=== PATIENT | male | born 2005 | race Caucasian/White ===

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

== ENCOUNTER → 2023-12-07 15:34 | Outpatient (BNVA) | payer MEDICAID, SELFPAY | PROVIDERS: Visit Provider Nurse Practitioner Family | DX: R45.86 Emotional lability (principal); F32.9 Major depressive disorder, single episode, unspecified; N50.812 Left testicular pain; N50.811 Right testicular pain | CPT/HCPCS: 80053; 84402; 84403; 84443; 85025 ==

== ENCOUNTER 2023-12-14 14:32 | Outpatient (CLI) | payer MEDICAID, SELFPAY ==
--- NOTE | 2023-12-14 14:45 | US_ITS ---
WS: [id number] TESTICULAR ULTRASOUND HISTORY: Testicular pain COMPARISON: None available. TECHNIQUE: Real-time and color Doppler imaging or utilized to perform a testicular ultrasound. Right testicle: 4.8 cm x 2.5 cm x 2.6 cm. Normal size and echogenicity. No mass or torsion. Normal color Doppler is present throughout. Systolic and diastolic velocities are both present. No significant hydrocele. Right epididymis: Normal epididymis with no increased vascularity. Left testicle: 4.2 cm x 3.1 cm x 2.4 cm. Normal size and echogenicity. No mass or torsion. Normal color Doppler is present throughout. Systolic and diastolic velocities are both present. No significant hydrocele. Left epididymis: Normal epididymis with no increased vascularity. IMPRESSION: NORMAL TESTICULAR ULTRASOUND.
== END 2023-12-14 14:33 | disposition home or self-care (01) ==
LOC: RAD 14:33
PROVIDERS: PCP Nurse Practitioner Family; Visit Provider Nurse Practitioner Family
DX: N50.812 Left testicular pain (principal); N50.811 Right testicular pain
CPT/HCPCS: 76870

== ENCOUNTER 2024-01-08 17:44 | Emergency (ER) | payer OTHER, SELFPAY ==
[2024-01-08 17:48] VITALS: BP 140/81; PULSE 80; RESP 17; TEMP 36.6; O2SAT 97; BMI 34.7
--- NOTE | 2024-01-08 18:01 | ED_ITS ---
HPI - Extremity Problem General: Chief complaint: Extremity Injury, Lower Stated complaint: Left Ankle pain Time Seen by Provider: 01/08/24 17:55 Source: patient Mode of arrival: ambulatory Limitations: no limitations History of Present Illness: 18yo male presents with significant othe r for evaluation of left ankle pain and swelling after rolling his ankle this morning while at work. Patient reports he felt a pop when he rolled it. States he was wearing his work boots at the time. Reports that it did go numb for approximately 2 minutes. States he did take an 800 mg pain reliever around 1100 but is not certain what it was. States that he did not have any improvement in his symptoms. Patient denies previous injury to the ankle, fall, any other concern at this time. Associated symptoms: Deny fever(s) Review of Systems Const: Denies: fever(s) Musc: Reports: joint pain (left ankle) and limited range of motion (left ankle, pain with movement) PFSH ED PFSH: Medical History Allergic rhinitis due to allergen Constipation No pertinent family history Surgical History No pertinent past surgical history Family History Other CAD (coronary artery disease) Denies family history of Diabetes Clotting disorder Dementia Hyperlipidemia Psychiatric illness Chronic kidney disease (CKD) Suicide Anesthesia complication Bleeding disorder Family history of premature coronary artery disease Lung disease Cancer Hypertension Stroke Social History Smoking and tobacco/nicotine status: never used tobacco/nicotine Alcohol intake: never Substance/Drug Use: never Adopted: No Lives independently: Yes Housing: House Marital status: Single Number of children: 0 Highest education level completed: High School Graduate service: No Current occupational status: unemployed Physical Exam Const: COMMON NORMALS: no acute distress GENERAL APPEARANCE: cooperative ORIENTATION/CONSCIOUSNESS: Yes awake OTHER: Patient is sitting upright on stretcher no acute distress. He is able to give history with no difficulty. He is interactive with exam appropriately. Family is at bedside HENMT: COMMON NORMALS: normocephalic HEAD & SCALP: normocephalic Extremity: LEFT LOWER EXTREMITY: Yes ankle joint Left ankle: Yes palpation (tenderness over the ATFL) and Yes ROM (increased pain with dorsi/plantar flexion and lateral movement) OTHER: No proximal fibula tenderness. No fifth metatarsal tenderness to palpation. +movement toes with no difficulty. Pedal pulse 2+, capillary refill < 3 sec Psych: ATTITUDE: Yes calm Skin: COMMON NORMALS: no rashes or lesions noted GENERAL SKIN EXAM: no rashes or lesions noted Course Vital Signs: Vital signs: Vital Signs Temperature 97.9 F 01/08/24 17:48 Pulse Rate 80 01/08/24 17:48 Respiratory Rate 17 01/08/24 17:48 Blood Pressure 140/81 01/08/24 17:48 Pulse Oximetry 97 01/08/24 17:48 Oxygen Delivery Me thod Room Air 01/08/24 17:48 MDM - Extremity (Nontraumatic) Medical Decision Making 18yo male here with friend for evaluation of left ankle pain and swelling after rolling his ankle this morning while at work. Patient reports that he did feel a pop when it occurred. States he has been able to walk, but he does have increased pain. He did attempt a pain medication that was 800 mg, but does not know exactly what it was. States that he had no improvement. Patient denies fall or any other injury or concern at this time. Patient is nontoxic in appearance. Vital signs are stable. Differential diagnosis include but is not limited to: Ankle sprain, ankle fracture, foot fracture, Maisonneuve fracture, contusion No fracture or acute bony abnormality noted on the x-ray. Discussed these findings with patient and family. At time of discussion of findings, someone from patient's job was with the patient and they decided to make this Workmen's Comp. The facility that typically does the urine drug screens has already closed and will not be open this weekend. Patient and coworker state understanding that a UDS performed in the emergency department may or may not be acceptable. They do wish to proceed. For the ankle, recommend rest, ice, elevation. Advised Tylenol/ibuprofen as needed for pain and comfort. Recommend increasing weightbearing and activity as tolerated. Advised to follow-up with primary care within a week for recheck, sooner if needed. Recommend return to emergency department if any rapid worsening symptoms, further injury, and as needed. Patient states understanding has no further questions or concerns at this time. Medical Records I reviewed the patient's medical records. Lab Data Radiology Impressions Ankle X-Ray 01/08/24 18:01 IMPRESSION: No acute findings. All radiology interpretation(s) finalized by discharge Discharge Plan Discharge Patient Disposition: Home Clinical Impression: Left ankle sprain Condition: Stable Prescriptions: No Action fluoxetine [Prozac] 10 mg capsule 10 mg PO DAILY 30 Days Qty: 30 0RF fluticasone propionate 50 mcg/actuation spray,suspension See Rx Instructions .ROUTE .COMPLEX Qty: 16 2RF Dose Instruction: instill 2 SPRAY IN EACH NOSTRIL DAILY Rx Instructions: instill 2 SPRAY IN EACH NOSTRIL DAILY Discharge Orders: Discharge ED (Routine); Ordered 01/08/24 Ordered By: Reed Giron Referrals: Kim Braga NP [Primary Care Provider] - Discharge Diet: Usual diet Discharge Activity: Increase activity as tolerated Patient Instructions: Ankle Sprain (ED) Activity Restrictions/Additional Instructions: No fracture or acute bony abnormality noted on the x-ray today. This is likely a sprain. Rest, ice, and elevation for the next couple of days will help with the pain and swelling. Apply ice for 10 to 15 minutes at a time throughout the day Use Tylenol/ibuprofen as needed for pain and comfort. Work on range of motion exercises over the next 2 days. Act as if your toe is a pen and draw your ABCs to provide full range of motion of the foot and ankle Increase your weightbearing and activity as tolerated over the next couple of days. Use the provided elastic wrap to help support the ankle Follow-up with your doctor for recheck of the ankle within 1 week, sooner if needed Return to the emergency department if any further injury, rapid worsening symptoms, and as needed Coding Level of Care Code ED Early Education Teacher for Miguel Pichardo
--- NOTE | 2024-01-08 18:01 | XRR_ITS ---
PROCEDURE INFORMATION: Exam: XR Left Ankle Exam date and time: 01/08/2024 6:13 PM Age: 18 years old Clinical indication: Injury or trauma; Other: Rolled ankle; Sprain or strain; Left; Additional info: Pain, rolled ankle TECHNIQUE: Imaging protocol: Radiologic exam of the left ankle. Views: 3 or more views. COMPARISON: No relevant prior studies available. FINDINGS: Bones/joints: Normal. Soft tissues: Normal. XR/XR ankle LT min 3V* [id number] IMPRESSION: No acute findings.
[2024-01-08 19:38] VITALS: PULSE 79; RESP 16; O2SAT 97
[2024-01-08 19:48] LABS: Amphetamines Screen Urine Negative (Negative); Barbiturates Screen Urine Negative (Negative); Benzodiazepines Screen Urine Negative (Negative); Cocaine Screen Urine Negative (Negative); Opiate Screen Urine Negative (Negative); PCP Screen Urine Negative (Negative); THC Screen Urine Negative (Negative)
== END 2024-01-08 19:39 | disposition home or self-care (01) ==
PROVIDERS: Emergency Provider Nurse Practitioner; PCP Nurse Practitioner Family
DX: S93.402A Sprain of unspecified ligament of left ankle, initial encounter (principal); X50.1XXA Overexertion from prolonged static or awkward postures, initial encounter; Y99.0 Civilian activity done for income or pay
CPT/HCPCS: 73610; 80306; 99283

== ENCOUNTER 2024-02-20 16:23 | Emergency (ER) | payer MEDICAID, SELFPAY ==
[2024-02-20 16:29] VITALS: BP 140/83; PULSE 103; RESP 17; TEMP 36.8; O2SAT 96; BMI 35.3
--- NOTE | 2024-02-20 16:55 | CTR_ITS ---
PROCEDURE INFORMATION: Exam: CT Orbits With Contrast Exam date and time: 02/20/2024 5:37 PM Age: 19 years old Clinical indication: Mass, lump, or swelling; Eye pain; Right; Patient HX: C/O pain with swelling to RT orbit; Additional info: Pain w/ eom TECHNIQUE: Imaging protocol: Computed tomography of the orbits with contrast. Radiation optimization: All CT scans at this facility use at least one of these dose optimization techniques: automated exposure control; mA and/or kV adjustment per patient size (includes targeted exams where dose is matched to clinical indication); or iterative reconstruction. Contrast material: OMNI 350; Contrast volume: 100 ml; Contrast route: INTRAVENOUS (IV); COMPARISON: No relevant prior studies available. RADIATION DOSE METRICS: Total DLP (mGy-cm): 388.68 FINDINGS: Paranasal sinuses: Trace mucosal thickening of the bilateral maxillary sinuses. Mastoid air cells: Mastoid air cells are clear. Orbital cavities: Orbits and globes are normal in appearance. Bones/joints: No acute osseous fractures. Soft tissues: Visualized superficial soft tissues are within normal limits. CT/CT orbit BI w con [id number] IMPRESSION: No acute findings.
--- NOTE | 2024-02-20 17:05 | W.ED.EYEPROB ---
Documented by User: SHARA Molina 02/20/24 18:43 HPI - Eye Problem General: Chief complaint: Eye Problems Stated complaint: swollen rt eye Time Seen by Provider: 02/20/24 16:48 Source: patient Mode of arrival: ambulatory Limitations: no limitations History of Present Illness: Patient is a 19-year-old male presenting to the emergency department complaining of right eye swelling onset 3 hours ago. He also is noting mild pain with extraocular movements. Denying any visual changes at this time. No fevers noted or other systemic signs of illness. He denies any foreign body sensation or trauma to the right eye. He has never had this issue before. He does note that the swelling and pain seems to be getting worse. Has not taken anything for symptoms. He does note a history of allergies and wonders if this is potentially caused from these. No overlying skin changes reported to the right eye. MD chief complaint: eye pain Onset (ago): hour(s) Onset description: sudden Duration: progressively worsening Location: right eye Associated symptoms: Denies fever(s), headache(s), nausea, neck pain or vomiting Review of Systems General: Reports: 10 or more systems reviewed and unremarkable except in HPI and below Const: Denies: fever(s), chills or fatigue Eyes: Reports: eye discomfort and other (Right periorbital swelling); Denies: change in vision or blurry vision ENMT: Denies: throat pain, ear or mastoid pain or nasal discharge Card: Denies: chest pain, palpitations, swelling of feet/ankles or lightheadedness Resp: Denies: dyspnea, productive cough or wheezing GI: Denies: abdominal pain, nausea, vomiting, diarrhea or constipation : Denies: flank pain, difficulty urinating, dysuria or urinary frequency Musc: Denies: neck pain, back pain or joint pain Skin/Breast: Denies: rash Neuro: Denies: headache(s), numbness in extremities or weakness in extremities PFSH ED PFSH: Medical History Allergic rhinitis due to allergen No pertinent family history Constipation Surgical History No pertinent past surgical history Family History Other CAD (coronary artery disease) Denies family history of Diabetes Clotting disorder Dementia Hyperlipidemia Psychiatric illness Chronic kidney disease (CKD) Suicide Anesthesia complication Bleeding disorder Family history of premature coronary artery disease Lung disease Cancer Hypertension Stroke Social History Smoking and tobacco/nicotine status: never used tobacco/nicotine Alcohol intake: never Substance/Drug Use: never Adopted: No Lives independently: Yes Housing: House Marital status: Single Number of children: 0 Highest education level completed: High School Graduate service: No Current occupational status: unemployed Physical Exam Const: COMMON NORMALS: no acute distress, patient oriented x3 and no limitations GENERAL APPEARANCE: cooperative, comfortable and well developed ORIENTATION/CONSCIOUSNESS: Yes awake, Yes oriented to person, Yes oriented to place and Yes oriented to time HENMT: COMMON NORMALS: normocephalic, atraumatic, hearing grossly normal bilaterally and Normal external nose present HEAD & SCALP: normocephalic and atraumatic FACE & SINUS: normal facial exam NOSE: Normal external nose present Eye: COMMON NORMALS: Equal, round and reactive pupils present and EOMs intact bilaterally VISUAL ACUITY: Yes acuity normal PERIORBITAL: periorbital findings normal PUPIL: Yes Equal, round and reactive pupils present OTHER: There appears to be a raised injection the lateral aspect of patient's right eye, potential etiology includes pinguecula. Mild pain reported with medial deviation of the right eye. There is no obvious periorbital swelling or erythema on examination at this time. Neck/C-Spine: COMMON NORMALS: full ROM, supple and no JVD Resp: COMMON NORMALS: normal respiratory effort, No retractions, No use of accessory muscles and clear to auscultation bilaterally AUSCULTATION: clear to auscultation bilaterally Cardio: COMMON NORMALS: no JVD, regular rate, regular rhythm, No clicks present (Cardio), No murmurs present (Cardio) and No rub (Cardio) RATE: regular rate RHYTHM: regular rhythm Extremity: COMMON NORMALS: normal to inspection, full ROM and capillary refill normal Neuro: COMMON NORMALS: patient oriented x3, moves all extremities, no focal motor deficits and no sensory deficits noted SENSORIUM/ORIENTATION: Yes oriented to person, Yes oriented to place and Yes oriented to time Psych: COMMON NORMALS: mental status grossly normal and Normal thought process present THOUGHT PROCESS: Normal thought process present Skin: COMMON NORMALS: no rashes or lesions noted GENERAL SKIN EXAM: no rashes or lesions noted Course Vital Signs: Vital signs: Vital Signs Temperature 98.3 F 02/20/24 18:47 Pulse Rate 89 02/20/24 18:47 Respiratory Rate 16 02/20/24 18:47 Blood Pressure 136/86 02/20/24 18:47 Pulse Oximetry 98 02/20/24 18:47 Oxygen Delivery Me thod Room Air 02/20/24 16:29 [facility] - Eye Problem Medical Decision Making Patient presented for acute onset of right eye swelling and pain with extraocular movements. No other symptoms noted and patient's vitals were normal on arrival. Condition has remained stable throughout ED course. He did have some mild pain with extraocular movement with medial deviation of the right eye, and evidence of what potentially resembles a pinguecula, as patient notes he has history of allergies. Orbital CT did not demonstrate any signs of orbital cellulitis. I will treat the patient for an allergic type conjunctivitis, including tien-jzg-nmyvyie artificial tears and allergy medications. He states he will do this and he will return with any worsening of symptoms, specifically the extraocular movement pain or visual changes. He also requests referral to an banana loader due to longstanding history of allergies. All other questions and concerns are addressed. Lab Data Radiology Impressions Orbit CT 02/20/24 16:55 IMPRESSION: No acute findings. All radiology interpretation(s) finalized by discharge Discharge Plan Discharge Patient Disposition: Home Clinical Impression: Acute pain in right eye Condition: Stable Prescriptions: No Action fluoxetine [Prozac] 10 mg capsule 10 mg PO DAILY 30 Days Qty: 30 0RF fluticasone propionate 50 mcg/actuation spray,suspension See Rx Instructions .ROUTE .COMPLEX Qty: 16 2RF Dose Instruction: instill 2 SPRAY IN EACH NOSTRIL DAILY Rx Instructions: instill 2 SPRAY IN EACH NOSTRIL DAILY Discharge Orders: Discharge ED (Routine); Ordered 02/20/24 Ordered By: Orion Bledsoe Referrals: Kim Braga NP [Primary Care Provider] - Discharge Diet: Usual diet Discharge Activity: Increase activity as tolerated Patient Instructions: Eye Pain (ED) Activity Restrictions/Additional Instructions: [id number] artificial tears. Allergy medications as instructed. Monitor for any worsening of symptoms such as worsening pain with movement of your eyes or visual changes, and return for reevaluation. Otherwise, follow-up with primary care. Coding Level of Care Code ED Certified Surgical Assistant for Jayg Fwd Documented by User: Danie Rangel DO 02/21/24 06:58 HPI - Eye Problem General: Chief complaint: Eye Problems Stated complaint: swollen rt eye Time Seen by Provider: 02/20/24 16:48 PFSH ED PFSH: Medical History Allergic rhinitis due to allergen No pertinent family history Constipation Surgical History No pertinent past surgical history Family History Other CAD (coronary artery disease) Denies family history of Diabetes Clotting disorder Dementia Hyperlipidemia Psychiatric illness Chronic kidney disease (CKD) Suicide Anesthesia complication Bleeding disorder Family history of premature coronary artery disease Lung disease Cancer Hypertension Stroke Social History Smoking and tobacco/nicotine status: never used tobacco/nicotine Alcohol intake: never Substance/Drug Use: never Adopted: No Lives independently: Yes Housing: House Marital status: Single Number of children: 0 Highest education level completed: High School Graduate service: No Current occupational status: unemployed Course Vital Signs: Vital signs: Vital Signs Temperature 98.3 F 02/20/24 18:47 Pulse Rate 89 02/20/24 18:47 Respiratory Rate 16 02/20/24 18:47 Blood Pressure 136/86 02/20/24 18:47 Pulse Oximetry 98 02/20/24 18:47 Oxygen Delivery Me thod Room Air 02/20/24 16:29 [facility]DM - Eye Problem Medical Decision Making Patient presented for acute onset of right eye swelling and pain with extraocular movements. No other symptoms noted and patient's vitals were normal on arrival. Condition has remained stable throughout ED course. He did have some mild pain with extraocular movement with medial deviation of the right eye, and evidence of what potentially resembles a pinguecula, as patient notes he has history of allergies. Orbital CT did not demonstrate any signs of orbital cellulitis. I will treat the patient for an allergic type conjunctivitis, including jgeo-sya-ymyjooq artificial tears and allergy medications. He states he will do this and he will return with any worsening of symptoms, specifically the extraocular movement pain or visual changes. He also requests referral to an banana loader due to longstanding history of allergies. All other questions and concerns are addressed. Chart reviewed Lab Data Radiology Impressions Orbit CT 02/20/24 16:55 IMPRESSION: No acute findings. Discharge Plan Discharge Patient Disposition: Home Clinical Impression: Acute pain in right eye Condition: Stable Prescriptions: No Action fluoxetine [Prozac] 10 mg capsule 10 mg PO DAILY 30 Days Qty: 30 0RF fluticasone propionate 50 mcg/actuation spray,suspension See Rx Instructions .ROUTE .COMPLEX Qty: 16 2RF Dose Instruction: instill 2 SPRAY IN EACH NOSTRIL DAILY Rx Instructions: instill 2 SPRAY IN EACH NOSTRIL DAILY Discharge Orders: Discharge ED (Routine); Ordered 02/20/24 Ordered By: Orion Bledsoe Referrals: Kim Braga NP [Primary Care Provider] - Discharge Diet: Usual diet Discharge Activity: Increase activity as tolerated Patient Instructions: Eye Pain (ED) Activity Restrictions/Additional Instructions: Ubdn-fbr-mujpuhk artificial tears. Allergy medications as instructed. Monitor for any worsening of symptoms such as worsening pain with movement of your eyes or visual changes, and return for reevaluation. Otherwise, follow-up with primary care. Coding Level of Care Code ED Certified Surgical Assistant for Miguel Pichardo
[2024-02-20] MEDS: iohexol 350 mg/mL 500 mL Btl (per mL) IV (17:39)
[2024-02-20 18:47] VITALS: BP 136/86; PULSE 89; RESP 16; TEMP 36.8; O2SAT 98
--- NOTE | 2024-02-25 15:28 | DCPLANNER ---
referral faxed to dr ruiz - ent/paving inspector
== END 2024-02-20 18:48 | disposition home or self-care (01) ==
PROVIDERS: Emergency Provider Physician Assistant; PCP Nurse Practitioner Family
DX: H57.11 Ocular pain, right eye (principal)
CPT/HCPCS: 70481; 99285; Q9967

== ENCOUNTER → 2024-02-25 16:16 | Outpatient (BNVA) | payer MEDICAID, SELFPAY | PROVIDERS: PCP Nurse Practitioner Family; Visit Provider Nurse Practitioner Family | DX: F32.9 Major depressive disorder, single episode, unspecified (principal); J30.2 Other seasonal allergic rhinitis; E66.9 Obesity, unspecified; Z68.36 Body mass index [BMI] 36.0-36.9, adult | CPT/HCPCS: 80053; 80061; 82785; 85025; 86003 ==